=== PATIENT | female | born 1975 | race African-American/Black ===

== ENCOUNTER 2017-09-09 17:18 | Emergency (ER) | payer MEDICARE, MEDICAID ==
[~2017-09-09] VITALS: Ht 157.5 cm; Wt 80.0 kg
[~2017-09-09 17:18] MED LIST: HYDR25SU PR; LEVE750T10 PO; LEVO500T2 PO; TOPI50TA24 PO; [UNRECOGNIZED DRUG - OTHER] PR
[2017-09-09] MEDS ORDERED: ESLI200T PO (17:24)
[2017-09-09] MEDS ORDERED: LEVETIRACETAM 1,000 MG in SODIUM CHLORIDE 0.9% 100 ML IV ONE (18:00)
[2017-09-09 18:42] LABS: EOSINOPHILS % 1.7 % (0.0-5.0); HEMOGLOBIN. 12.9 g/dL (12.0-16.0); LYMPHOCYTES % 44.4 % (20.0-50.0); MEAN CORPUSCULAR HEMOGLOBIN 32.7 pg (28.0-32.0); MEAN CORPUSCULAR VOLUME 96.7 fL (81.0-99.0); MEAN PLATELET VOLUME 8.2 fl (7.4-10.4); NEUTROPHILS % 46.9 % (40.0-76.0); PLATELET 298 x1000/uL (130-400); RED BLOOD CELL COUNT 3.93 mill/uL (4.2-5.4); RED CELL DISTRIBUTION WIDTH 14.1 % (11.6-14.6)
[2017-09-09 18:59] LABS: CLARITY URINE CLEAR (CLEAR); COLOR URINE YELLOW (YELLOW); GLUCOSE URINE NEGATIVE (NEGATIVE); KETONES URINE NEGATIVE (NEGATIVE); LEUKOCYTE ESTERASE URINE NEGATIVE (NEGATIVE); NITRITE URINE NEGATIVE (NEGATIVE); OCCULT BLOOD URINE 3+ (NEGATIVE); PH URINE 7.5 (4.5-8.0); PROTEIN URINE NEGATIVE (NEGATIVE); SPECIFIC GRAVITY URINE 1.003 (1.005-1.030); UROBILINOGEN URINE 0.2 E.U./dL (0.2-1.0)
[2017-09-09] MEDS ORDERED: LEVETIRACETAM 1,000 MG in SODIUM CHLORIDE 0.9% 100 ML IV SCH (19:00)
[2017-09-09 19:25] LABS: *AMPHETAMINES SCREEN URINE NEGATIVE (NEGATIVE); *BARBITURATES SCREEN URINE NEGATIVE (NEGATIVE); *BENZODIAZEPINES SCREEN URINE NEGATIVE (NEGATIVE); *COCAINE SCREEN URINE NEGATIVE (NEGATIVE); METHADONE URINE SCREEN NEGATIVE (NEGATIVE); OPIATES URINE SCREEN NEGATIVE (NEGATIVE); PHENCYCLIDINE URINE SCREEN NEGATIVE (NEGATIVE)
[2017-09-09 19:29] LABS: CANNABINOID URINE SCREEN PRESUMTIVE POSITIVE (NEGATIVE)
[2017-09-09 19:41] LABS: CHLORIDE 104 mEq/L (98-107)
[2017-09-09 19:48] LABS: CARBON DIOXIDE 22 mEq/L (21-32); ETHANOL BLOOD < 10 mg/dL
[2017-09-09 19:52] LABS: CARBAMAZEPINE < 0.5 ug/mL (4-12); PHENOBARBITAL < 2.1 ug/mL (15.0-40.0); VALPROIC ACID < 3.0 ug/mL (50-100)
[2017-09-09 22:30] VITALS: BP 110/78
== END 2017-09-09 23:10 | disposition home or self-care (01) ==
LOC: ER 17:18
DX: R56.9 Unspecified convulsions (principal); F17.200 Nicotine dependence, unspecified, uncomplicated
CPT/HCPCS: 36415; 70450; 80053; 80156; 80165; 80184; 80185; 80305; 81001; 81025; 82962; 85025; 96365; 99285; G0482; J1953; J7050

== ENCOUNTER 2018-01-10 05:42 | Emergency (ER) | payer MEDICARE, MEDICAID ==
[~2018-01-10] VITALS: Ht 165.1 cm; Wt 63.0 kg
[~2018-01-10 05:42] MED LIST changes: +ESLI200T PO
[2018-01-10 06:58] LABS: BASOPHILS % 0.7 % (0.0-2.0); EOSINOPHILS % 0.2 % (0.0-5.0); HEMOGLOBIN. 13.7 g/dL (12.0-16.0); LYMPHOCYTES % 24.6 % (20.0-50.0); MEAN CORPUSCULAR HEMOGLOBIN 32.7 pg (28.0-32.0); MEAN CORPUSCULAR VOLUME 95.5 fL (81.0-99.0); MEAN PLATELET VOLUME 7.7 fl (7.4-10.4); MONOCYTES % 7.3 % (2.0-8.0); NEUTROPHILS % 67.2 % (40.0-76.0); PLATELET 317 x1000/uL (130-400); RED BLOOD CELL COUNT 4.19 mill/uL (4.2-5.4); RED CELL DISTRIBUTION WIDTH 14.2 % (11.6-14.6)
[2018-01-10 07:03] LABS: INR 1.1; PROTHROMBIN TIME 11.6 sec (9.4-11.6)
[2018-01-10 07:09] LABS: CHLORIDE 107 mEq/L (98-107)
[2018-01-10 07:26] LABS: HCG SCREEN NEGATIVE
[2018-01-10 07:35] LABS: CLARITY URINE CLOUDY (CLEAR); COLOR URINE YELLOW (YELLOW); KETONES URINE 4+ (NEGATIVE); LEUKOCYTE ESTERASE URINE TRACE (NEGATIVE); NITRITE URINE NEGATIVE (NEGATIVE); OCCULT BLOOD URINE TRACE (NEGATIVE); PH URINE 5.5 (4.5-8.0); PROTEIN URINE TRACE (NEGATIVE); SPECIFIC GRAVITY URINE 1.016 (1.005-1.030); UROBILINOGEN URINE 0.2 E.U./dL (0.2-1.0)
[2018-01-10 08:56] VITALS: BP 126/93
== END 2018-01-10 08:58 | disposition home or self-care (01) ==
LOC: ER 05:42
DX: G40.909 Epilepsy, unspecified, not intractable, without status epilepticus (principal); R10.2 Pelvic and perineal pain; J06.9 Acute upper respiratory infection, unspecified; I10 Essential (primary) hypertension; F17.200 Nicotine dependence, unspecified, uncomplicated
CPT/HCPCS: 36415; 71045; 80053; 81003; 83605; 84703; 85025; 85610; 99285

== ENCOUNTER 2018-01-10 09:36 | Emergency (ER) | payer MEDICARE, MEDICAID ==
[~2018-01-10] VITALS: Ht 167.6 cm; Wt 69.0 kg
[2018-01-10] MEDS ORDERED: MAGNESIUM/ALUMINUM HYDROXIDE/SIMETHICONE 30ML UDC PO STA (14:49)
[2018-01-10] MEDS ORDERED: VISCOUS LIDOCAINE 2% 15 ML UDC PO STA (14:49)
[2018-01-10 16:03] LABS: EOSINOPHILS % 0.3 % (0.0-5.0); LYMPHOCYTES % 40.5 % (20.0-50.0); MEAN CORPUSCULAR HEMOGLOBIN 32.7 pg (28.0-32.0); MEAN CORPUSCULAR VOLUME 96.2 fL (81.0-99.0); MONOCYTES % 7.7 % (2.0-8.0); NEUTROPHILS % 50.5 % (40.0-76.0); RED BLOOD CELL COUNT 4.58 mill/uL (4.2-5.4); RED CELL DISTRIBUTION WIDTH 14.3 % (11.6-14.6)
[2018-01-10 16:13] LABS: CHLORIDE 106 mEq/L (98-107)
[2018-01-10 16:18] LABS: ETHANOL BLOOD < 10 mg/dL
[2018-01-10 16:25] LABS: HCG SCREEN NEGATIVE
[2018-01-10] MEDS ORDERED: POTASSIUM CHLORIDE 20MEQ TABLET SR PO ONE (16:30)
[2018-01-10 18:50] LABS: CLARITY URINE CLEAR (CLEAR); COLOR URINE YELLOW (YELLOW); KETONES URINE 3+ (NEGATIVE); LEUKOCYTE ESTERASE URINE NEGATIVE (NEGATIVE); NITRITE URINE NEGATIVE (NEGATIVE); OCCULT BLOOD URINE TRACE (NEGATIVE); PH URINE 6.5 (4.5-8.0); PROTEIN URINE NEGATIVE (NEGATIVE); SPECIFIC GRAVITY URINE 1.012 (1.005-1.030)
[2018-01-10 19:11] LABS: *AMPHETAMINES SCREEN URINE NEGATIVE (NEGATIVE); *BARBITURATES SCREEN URINE NEGATIVE (NEGATIVE); *BENZODIAZEPINES SCREEN URINE NEGATIVE (NEGATIVE); *COCAINE SCREEN URINE NEGATIVE (NEGATIVE); METHADONE URINE SCREEN NEGATIVE (NEGATIVE); OPIATES URINE SCREEN NEGATIVE (NEGATIVE); PHENCYCLIDINE URINE SCREEN NEGATIVE (NEGATIVE)
[2018-01-10 19:12] LABS: CANNABINOID URINE SCREEN PRESUMTIVE POSITIVE (NEGATIVE)
[2018-01-10 20:07] VITALS: BP 120/62
== END 2018-01-10 20:13 | disposition home or self-care (01) ==
LOC: ER 11:19
DX: R10.13 Epigastric pain (principal); G40.909 Epilepsy, unspecified, not intractable, without status epilepticus; F91.8 Other conduct disorders; F12.10 Cannabis abuse, uncomplicated; E87.6 Hypokalemia; Z87.891 Personal history of nicotine dependence; Z88.8 Allergy status to other drugs, medicaments and biological substances
CPT/HCPCS: 36415; 76705; 80053; 80305; 81003; 82962; 83690; 84703; 85025; 99285; G0482

== ENCOUNTER 2018-01-11 08:37 | Emergency (ER) | payer MEDICARE, MEDICAID ==
[~2018-01-11] VITALS: Ht 177.8 cm; Wt 74.0 kg
[2018-01-11] MEDS ORDERED: MORPHINE SULFATE 4 MG/ML CPJ (NOT FOR IM USE) IV STA (09:13)
[2018-01-11] MEDS ORDERED: ONDANSETRON HCL 4MG/2ML VIAL IV STA (09:13)
[2018-01-11 09:38] LABS: BASOPHILS % 0.8 % (0.0-2.0); EOSINOPHILS % 0.2 % (0.0-5.0); HEMATOCRIT. 39.9 % (36.0-48.0); HEMOGLOBIN. 13.8 g/dL (12.0-16.0); LYMPHOCYTES % 29.8 % (20.0-50.0); MEAN CORPUSCULAR HEMOGLOBIN 32.8 pg (28.0-32.0); MEAN CORPUSCULAR VOLUME 94.9 fL (81.0-99.0); MEAN PLATELET VOLUME 7.3 fl (7.4-10.4); MONOCYTES % 8.8 % (2.0-8.0); NEUTROPHILS % 60.4 % (40.0-76.0); PLATELET 331 x1000/uL (130-400); RED BLOOD CELL COUNT 4.21 mill/uL (4.2-5.4); RED CELL DISTRIBUTION WIDTH 14.4 % (11.6-14.6)
[2018-01-11 09:45] LABS: CHLORIDE 107 mEq/L (98-107)
[2018-01-11 09:58] LABS: INR 1.1
[2018-01-11 11:14] LABS: CLARITY URINE CLEAR (CLEAR); COLOR URINE YELLOW (YELLOW); KETONES URINE 2+ (NEGATIVE); LEUKOCYTE ESTERASE URINE NEGATIVE (NEGATIVE); NITRITE URINE NEGATIVE (NEGATIVE); OCCULT BLOOD URINE NEGATIVE (NEGATIVE); PH URINE 6.5 (4.5-8.0); PROTEIN URINE NEGATIVE (NEGATIVE); SPECIFIC GRAVITY URINE 1.012 (1.005-1.030); UROBILINOGEN URINE 0.2 E.U./dL (0.2-1.0)
[2018-01-11 12:30] VITALS: BP 112/66
[2018-01-12] MEDS ORDERED: LEVETIRACETAM 250MG TABLET PO SCH (03:00)
[2018-01-12] MEDS ORDERED: TOPIRAMATE 100MG TABLET PO SCH (03:00)
== END 2018-01-11 13:38 | disposition home or self-care (01) ==
LOC: ER 09:23
DX: R10.11 Right upper quadrant pain (principal); G40.909 Epilepsy, unspecified, not intractable, without status epilepticus; Z87.891 Personal history of nicotine dependence; F12.90 Cannabis use, unspecified, uncomplicated; Z79.899 Other long term (current) drug therapy
CPT/HCPCS: 36415; 76705; 80053; 81003; 83690; 85025; 85610; 96374; 96375; 99285; J2270; J2405

== ENCOUNTER 2018-01-11 20:31 | Emergency (ER) | payer MEDICARE, MEDICAID ==
[~2018-01-11] VITALS: Ht 157.5 cm; Wt 75.0 kg
[2018-01-12] MEDS ORDERED: LEVETIRACETAM 100MG/ML ORAL SYR PO ONE (02:15)
[2018-01-12 03:06] VITALS: BP 130/85
[2018-01-12] MEDS ORDERED: TOPIRAMATE 100MG TABLET PO SCH (09:00)
== END 2018-01-12 03:10 | disposition home or self-care (01) ==
LOC: ER 22:08
DX: G40.909 Epilepsy, unspecified, not intractable, without status epilepticus (principal); R03.0 Elevated blood-pressure reading, without diagnosis of hypertension; Z91.14 Patient's other noncompliance with medication regimen; F17.210 Nicotine dependence, cigarettes, uncomplicated; F12.90 Cannabis use, unspecified, uncomplicated; F91.8 Other conduct disorders
CPT/HCPCS: 36415; 76705; 80053; 81003; 82962; 83690; 85025; 85610; 96374; 96375; 99283; 99285; J2270; J2405

== ENCOUNTER 2018-01-17 18:55 | Emergency (ER) | payer MEDICARE, MEDICAID ==
[~2018-01-17] VITALS: Ht 170.2 cm; Wt 55.0 kg
[2018-01-17] MEDS ORDERED: SODIUM CHLORIDE 0.9% 1,000 ML IV ONE (19:19)
[2018-01-17] MEDS ORDERED: LEVETIRACETAM 500MG PREMIX 100 ML IV ONE (19:30)
[2018-01-17 20:00] LABS: BASOPHILS % 0.6 % (0.0-2.0); EOSINOPHILS % 0.1 % (0.0-5.0); HEMOGLOBIN. 12.9 g/dL (12.0-16.0); LYMPHOCYTES % 17.3 % (20.0-50.0); MEAN CORPUSCULAR HEMOGLOBIN 32.5 pg (28.0-32.0); MEAN CORPUSCULAR VOLUME 95.8 fL (81.0-99.0); MONOCYTES % 6.5 % (2.0-8.0); NEUTROPHILS % 75.5 % (40.0-76.0); PLATELET 275 x1000/uL (130-400); RED BLOOD CELL COUNT 3.96 mill/uL (4.2-5.4)
[2018-01-17 20:02] LABS: INR 1.1; PROTHROMBIN TIME 11.6 sec (9.4-11.6)
[2018-01-17 20:07] LABS: CHLORIDE 108 mEq/L (98-107); ETHANOL BLOOD < 10 mg/dL
[2018-01-17 20:09] LABS: AMMONIA < 10 uMol/L (<32)
[2018-01-17 20:10] LABS: HCG SCREEN NEGATIVE
[2018-01-17 20:13] LABS: CREATINE KINASE 72 IU/L (26-192)
[2018-01-17] MEDS ORDERED: ACETAMINOPHEN 325MG TABLET PO ONE (20:15)
[2018-01-17 22:00] VITALS: BP 116/76
== END 2018-01-17 23:10 | disposition home or self-care (01) ==
LOC: ER 21:27
DX: G40.409 Other generalized epilepsy and epileptic syndromes, not intractable, without status epilepticus (principal); F12.10 Cannabis abuse, uncomplicated; Z88.8 Allergy status to other drugs, medicaments and biological substances
CPT/HCPCS: 36415; 70450; 80053; 82140; 82550; 83690; 84443; 84484; 84703; 85025; 85610; 93005; 96365; 99285; G0482; J1953; J7030

== ENCOUNTER 2018-02-08 11:50 | Emergency (ER) | payer MEDICARE, MEDICAID ==
[~2018-02-08] VITALS: Ht 167.6 cm; Wt 85.0 kg
[2018-02-08] MEDS ORDERED: LEVETIRACETAM 1000MG/100ML 100 ML IV ONE (12:45)
[2018-02-08 13:08] LABS: BASOPHILS % 0.9 % (0.0-2.0); EOSINOPHILS % 1.6 % (0.0-5.0); HEMOGLOBIN. 12.4 g/dL (12.0-16.0); LYMPHOCYTES % 24.9 % (20.0-50.0); MEAN CORPUSCULAR HEMOGLOBIN 32.8 pg (28.0-32.0); MEAN CORPUSCULAR VOLUME 95.6 fL (81.0-99.0); MEAN PLATELET VOLUME 7.1 fl (7.4-10.4); MONOCYTES % 5.4 % (2.0-8.0); NEUTROPHILS % 67.2 % (40.0-76.0); PLATELET 378 x1000/uL (130-400); RED BLOOD CELL COUNT 3.77 mill/uL (4.2-5.4); RED CELL DISTRIBUTION WIDTH 14.8 % (11.6-14.6)
[2018-02-08 13:15] LABS: CHLORIDE 114 mEq/L (98-107)
[2018-02-08 13:19] LABS: ETHANOL BLOOD < 10 mg/dL
[2018-02-08 16:08] LABS: CLARITY URINE CLEAR (CLEAR); COLOR URINE YELLOW (YELLOW); KETONES URINE NEGATIVE (NEGATIVE); LEUKOCYTE ESTERASE URINE NEGATIVE (NEGATIVE); NITRITE URINE NEGATIVE (NEGATIVE); OCCULT BLOOD URINE 2+ (NEGATIVE); PROTEIN URINE NEGATIVE (NEGATIVE); SPECIFIC GRAVITY URINE 1.015 (1.005-1.030); UROBILINOGEN URINE 0.2 E.U./dL (0.2-1.0)
[2018-02-08 16:22] LABS: *COCAINE SCREEN URINE NEGATIVE (NEGATIVE); METHADONE URINE SCREEN NEGATIVE (NEGATIVE); OPIATES URINE SCREEN NEGATIVE (NEGATIVE)
[2018-02-08 16:23] LABS: *AMPHETAMINES SCREEN URINE NEGATIVE (NEGATIVE); *BARBITURATES SCREEN URINE NEGATIVE (NEGATIVE); *BENZODIAZEPINES SCREEN URINE NEGATIVE (NEGATIVE); CANNABINOID URINE SCREEN PRESUMTIVE POSITIVE (NEGATIVE); PHENCYCLIDINE URINE SCREEN NEGATIVE (NEGATIVE)
[2018-02-08] MEDS ORDERED: LEVETIRACETAM 500MG TABLET PO ONE (16:30)
[2018-02-08 16:59] VITALS: BP 130/43
== END 2018-02-08 17:04 | disposition home or self-care (01) ==
LOC: ER 12:05
DX: G40.909 Epilepsy, unspecified, not intractable, without status epilepticus (principal); I10 Essential (primary) hypertension; F12.10 Cannabis abuse, uncomplicated; Z88.8 Allergy status to other drugs, medicaments and biological substances
CPT/HCPCS: 36415; 80053; 80305; 81003; 85025; 96365; 96366; 99285; G0482; J1953

== ENCOUNTER 2018-09-14 18:32 | Emergency (ER) | payer MEDICARE, MEDICAID ==
[~2018-09-14] VITALS: Ht 165.1 cm; Wt 91.0 kg
[2018-09-14] MEDS ORDERED: SODIUM CHLORIDE 0.9% 1,000 ML IV ONE (19:33)
[2018-09-14 20:28] LABS: BASOPHILS % 0.5 % (0.0-2.0); EOSINOPHILS % 1.1 % (0.0-5.0); HEMATOCRIT. 38.3 % (36.0-48.0); HEMOGLOBIN. 12.5 g/dL (12.0-16.0); LYMPHOCYTES % 19.8 % (20.0-50.0); MEAN CORPUSCULAR HEMOGLOBIN 32.1 pg (28.0-32.0); MEAN CORPUSCULAR VOLUME 98.2 fL (81.0-99.0); MEAN PLATELET VOLUME 8.1 fl (7.4-10.4); MONOCYTES % 6.2 % (2.0-8.0); NEUTROPHILS % 72.4 % (40.0-76.0); PLATELET 286 x1000/uL (130-400); RED CELL DISTRIBUTION WIDTH 14.4 % (11.6-14.6)
[2018-09-14 20:31] LABS: CHLORIDE 110 mEq/L (98-107)
[2018-09-14 20:38] LABS: ETHANOL BLOOD < 10 mg/dL
[2018-09-14 20:53] LABS: CLARITY URINE TURBID (CLEAR); COLOR URINE YELLOW (YELLOW); KETONES URINE NEGATIVE (NEGATIVE); LEUKOCYTE ESTERASE URINE NEGATIVE (NEGATIVE); NITRITE URINE NEGATIVE (NEGATIVE); OCCULT BLOOD URINE NEGATIVE (NEGATIVE); PROTEIN URINE NEGATIVE (NEGATIVE); SPECIFIC GRAVITY URINE 1.009 (1.005-1.030); UROBILINOGEN URINE 0.2 E.U./dL (0.2-1.0)
[2018-09-14] MEDS ORDERED: DEXTROSE 50% WATER 50ML SYRINGE IV NR (21:00)
[2018-09-14 21:16] LABS: HCG SCREEN NEGATIVE
[2018-09-14 21:19] LABS: PROTHROMBIN TIME 10.2 sec (9.1-11.1)
[2018-09-14 21:28] LABS: *AMPHETAMINES SCREEN URINE NEGATIVE (NEGATIVE); *BARBITURATES SCREEN URINE NEGATIVE (NEGATIVE); *BENZODIAZEPINES SCREEN URINE NEGATIVE (NEGATIVE); *COCAINE SCREEN URINE NEGATIVE (NEGATIVE); METHADONE URINE SCREEN NEGATIVE (NEGATIVE); OPIATES URINE SCREEN NEGATIVE (NEGATIVE)
[2018-09-14 21:29] LABS: PHENCYCLIDINE URINE SCREEN NEGATIVE (NEGATIVE)
[2018-09-14 21:30] LABS: CANNABINOID URINE SCREEN PRESUMTIVE POSITIVE (NEGATIVE)
[2018-09-15 00:02] VITALS: BP 100/59
== END 2018-09-14 23:50 | disposition home or self-care (01) ==
LOC: ER 18:32
DX: R56.9 Unspecified convulsions (principal); E16.2 Hypoglycemia, unspecified; F12.10 Cannabis abuse, uncomplicated; I10 Essential (primary) hypertension; R53.1 Weakness; R42 Dizziness and giddiness; M79.605 Pain in left leg; Z86.718 Personal history of other venous thrombosis and embolism; Z86.711 Personal history of pulmonary embolism; Z98.890 Other specified postprocedural states; Z88.8 Allergy status to other drugs, medicaments and biological substances; Z88.2 Allergy status to sulfonamides; Z79.899 Other long term (current) drug therapy
CPT/HCPCS: 36415; 70450; 80053; 80305; 81003; 81025; 82962; 83605; 84484; 84703; 85025; 85610; 93005; 96360; 96361; 99284; G0482; J7030

== ENCOUNTER 2018-12-06 09:02 | Emergency (ER) | payer MEDICARE, MEDICAID ==
[~2018-12-06] VITALS: Ht 167.6 cm; Wt 91.0 kg
[2018-12-06] MEDS: OXYCODONE HCL/ACETAMINOPHEN 5/325MG TABLET PO ONE (10:12)
[2018-12-06] MEDS: NA PHOS,M-B/NA PHOS,DI-BA ENEMA 118ML PR ONE (10:26)
[2018-12-06] MEDS: MAGNESIUM CITRATE 300ML SOLUTION PO ONE (10:26)
[2018-12-06 15:20] VITALS: BP 135/75
== END 2018-12-06 18:05 | disposition home or self-care (01) ==
LOC: ER 09:17
DX: K59.00 Constipation, unspecified (principal); M54.5 Low back pain; F12.10 Cannabis abuse, uncomplicated; I10 Essential (primary) hypertension; Z86.718 Personal history of other venous thrombosis and embolism; Z88.2 Allergy status to sulfonamides; Z88.8 Allergy status to other drugs, medicaments and biological substances; Z79.899 Other long term (current) drug therapy
CPT/HCPCS: 99284

== ENCOUNTER 2019-01-21 20:44 | Emergency (ER) | payer MEDICARE, MEDICAID ==
[~2019-01-21] VITALS: Ht 167.6 cm; Wt 73.0 kg
[2019-01-21] MEDS ORDERED: LEVETIRACETAM 500MG PREMIX 100 ML IV ONE (22:30)
[2019-01-21] MEDS ORDERED: LEVETIRACETAM 500MG PREMIX 100 ML IV SCH (23:15)
[2019-01-21 23:19] LABS: *AMPHETAMINES SCREEN URINE NEGATIVE (NEGATIVE); *BARBITURATES SCREEN URINE NEGATIVE (NEGATIVE); *BENZODIAZEPINES SCREEN URINE NEGATIVE (NEGATIVE); *COCAINE SCREEN URINE NEGATIVE (NEGATIVE); METHADONE URINE SCREEN NEGATIVE (NEGATIVE); OPIATES URINE SCREEN NEGATIVE (NEGATIVE)
[2019-01-21 23:20] LABS: CANNABINOID URINE SCREEN PRESUMTIVE POSITIVE (NEGATIVE); PHENCYCLIDINE URINE SCREEN NEGATIVE (NEGATIVE)
[2019-01-21 23:59] LABS: BASOPHILS % 1.6 % (0.0-2.0); EOSINOPHILS % 1.9 % (0.0-5.0); HEMATOCRIT. 38.5 % (36.0-48.0); HEMOGLOBIN. 12.9 g/dL (12.0-16.0); LYMPHOCYTES % 49.2 % (20.0-50.0); MEAN CORPUSCULAR HEMOGLOBIN 32.4 pg (28.0-32.0); MEAN PLATELET VOLUME 7.3 fl (7.4-10.4); MONOCYTES % 5.4 % (2.0-8.0); NEUTROPHILS % 41.9 % (40.0-76.0); PLATELET 306 x1000/uL (130-400); RED BLOOD CELL COUNT 3.97 mill/uL (4.2-5.4); RED CELL DISTRIBUTION WIDTH 14.8 % (11.6-14.6)
[2019-01-22 00:06] LABS: CHLORIDE 112 mEq/L (98-107)
[2019-01-22 00:07] LABS: INR 1.1; PARTIAL THROMBOPLASTIN TIME 27.9 sec (23.4-31.0); PROTHROMBIN TIME 10.6 sec (9.1-11.1)
[2019-01-22 00:10] LABS: ETHANOL BLOOD < 10 mg/dL
[2019-01-22 00:17] LABS: HCG SCREEN NEGATIVE
[2019-01-22 00:21] LABS: CARBAMAZEPINE < 0.5 ug/mL (4-12)
[2019-01-22 01:15] VITALS: BP 112/70
== END 2019-01-22 04:07 | disposition home or self-care (01) ==
LOC: ER 20:44
DX: R56.9 Unspecified convulsions (principal); F12.10 Cannabis abuse, uncomplicated; I10 Essential (primary) hypertension; Z79.899 Other long term (current) drug therapy; Z88.8 Allergy status to other drugs, medicaments and biological substances
CPT/HCPCS: 36415; 70450; 80053; 80156; 80305; 80320; 84703; 85025; 85610; 85730; 96365; 99284; J1953; G0480

== ENCOUNTER 2019-02-26 18:24 | Emergency (ER) | payer MEDICARE, MEDICAID ==
[~2019-02-26] VITALS: Ht 172.7 cm; Wt 96.0 kg
[2019-02-26] MEDS ORDERED: LEVETIRACETAM 500MG PREMIX 100 ML IV ONE (19:45)
[2019-02-26 21:00] LABS: CHLORIDE 111 mEq/L (98-107)
[2019-02-26 21:01] LABS: BASOPHILS % 1.2 % (0.0-2.0); EOSINOPHILS % 1.8 % (0.0-5.0); HEMATOCRIT. 37.8 % (36.0-48.0); HEMOGLOBIN. 12.5 g/dL (12.0-16.0); MEAN CORPUSCULAR HEMOGLOBIN 32.5 pg (28.0-32.0); MEAN CORPUSCULAR VOLUME 98.5 fL (81.0-99.0); MEAN PLATELET VOLUME 7.9 fl (7.4-10.4); MONOCYTES % 6.6 % (2.0-8.0); NEUTROPHILS % 59.4 % (40.0-76.0); PLATELET 272 x1000/uL (130-400); RED BLOOD CELL COUNT 3.84 mill/uL (4.2-5.4)
[2019-02-26 21:04] LABS: ETHANOL BLOOD < 10 mg/dL
[2019-02-26 21:10] LABS: HCG SCREEN NEGATIVE
[2019-02-26 22:59] VITALS: BP 109/67
== END 2019-02-26 23:45 | disposition home or self-care (01) ==
LOC: ER 18:24
DX: R56.9 Unspecified convulsions (principal); I10 Essential (primary) hypertension; F17.200 Nicotine dependence, unspecified, uncomplicated; F12.10 Cannabis abuse, uncomplicated; Z79.899 Other long term (current) drug therapy; Z88.8 Allergy status to other drugs, medicaments and biological substances
CPT/HCPCS: 36415; 80053; 80320; 81025; 84703; 85025; 93005; 96365; 99284; J1953; G0480

== ENCOUNTER 2019-05-09 15:05 | Emergency (ER) | payer MEDICARE, MEDICAID ==
[~2019-05-09] VITALS: Ht 167.6 cm; Wt 82.0 kg
[2019-05-09] MEDS ORDERED: TOPIRAMATE 100MG TABLET PO STA (16:09)
[2019-05-09] MEDS ORDERED: SODIUM CHLORIDE 0.9% 1,000 ML IV ONE (16:09)
[2019-05-09] MEDS ORDERED: LEVETIRACETAM 500MG PREMIX 100 ML IV ONE (16:15)
[2019-05-09] MEDS ORDERED: ACETAMINOPHEN 325MG TABLET PO ONE (16:15)
[2019-05-09 16:34] LABS: BASOPHILS % 0.5 % (0.0-2.0); EOSINOPHILS % 0.5 % (0.0-5.0); HEMATOCRIT. 40.2 % (36.0-48.0); HEMOGLOBIN. 13.4 g/dL (12.0-16.0); MEAN CORPUSCULAR HEMOGLOBIN 32.9 pg (28.0-32.0); MEAN CORPUSCULAR VOLUME 98.7 fL (81.0-99.0); MONOCYTES % 7.5 % (2.0-8.0); NEUTROPHILS % 68.5 % (40.0-76.0); PLATELET 338 x1000/uL (130-400); RED BLOOD CELL COUNT 4.08 mill/uL (4.2-5.4); RED CELL DISTRIBUTION WIDTH 14.7 % (11.6-14.6)
[2019-05-09 16:38] LABS: CHLORIDE 107 mEq/L (98-107)
[2019-05-09 16:48] LABS: HCG SCREEN NEGATIVE
[2019-05-09] MEDS ORDERED: TOPIRAMATE 100MG TABLET PO NR (17:00)
[2019-05-09 18:44] VITALS: BP 114/69
== END 2019-05-09 19:01 | disposition home or self-care (01) ==
LOC: ER 15:05
DX: G40.909 Epilepsy, unspecified, not intractable, without status epilepticus (principal); S00.512A Abrasion of oral cavity, initial encounter; E16.2 Hypoglycemia, unspecified; I10 Essential (primary) hypertension; F12.90 Cannabis use, unspecified, uncomplicated; X58.XXXA Exposure to other specified factors, initial encounter; Y93.89 Activity, other specified; Y92.89 Other specified places as the place of occurrence of the external cause
CPT/HCPCS: 36415; 80053; 82962; 84703; 85025; 96365; 96366; 99283; J1953; J7030

== ENCOUNTER 2019-07-23 13:37 | Emergency (ER) | payer MEDICARE, MEDICAID ==
[~2019-07-23] VITALS: Ht 162.6 cm; Wt 80.0 kg
[~2019-07-23 13:37] MED LIST changes: +LEVE750T10 *; -LEVE750T10 PO
[2019-07-23] MEDS ORDERED: KEPP250 PO (13:55)
[2019-07-23] MEDS ORDERED: SODIUM CHLORIDE 0.9% 1,000 ML IV ONE (14:17)
[2019-07-23 16:00] LABS: BASOPHILS % 0.9 % (0.0-2.0); EOSINOPHILS % 1.1 % (0.0-5.0); HEMATOCRIT. 39.7 % (36.0-48.0); HEMOGLOBIN. 13.2 g/dL (12.0-16.0); LYMPHOCYTES % 27.1 % (20.0-50.0); MEAN CORPUSCULAR HEMOGLOBIN 32.5 pg (28.0-32.0); MEAN CORPUSCULAR VOLUME 98.1 fL (81.0-99.0); MEAN PLATELET VOLUME 7.9 fl (7.4-10.4); MONOCYTES % 6.3 % (2.0-8.0); NEUTROPHILS % 64.6 % (40.0-76.0); PLATELET 268 x1000/uL (130-400); RED BLOOD CELL COUNT 4.05 mill/uL (4.2-5.4); RED CELL DISTRIBUTION WIDTH 13.8 % (11.6-14.6)
[2019-07-23 16:04] LABS: CHLORIDE 112 mEq/L (98-107)
[2019-07-23 16:31] LABS: CLARITY URINE CLEAR (CLEAR); COLOR URINE ORANGE (YELLOW); KETONES URINE NEGATIVE (NEGATIVE); LEUKOCYTE ESTERASE URINE NEGATIVE (NEGATIVE); NITRITE URINE NEGATIVE (NEGATIVE); OCCULT BLOOD URINE 3+ (NEGATIVE); PH URINE 6.5 (4.5-8.0); PROTEIN URINE 1+ (NEGATIVE); SPECIFIC GRAVITY URINE 1.013 (1.005-1.030); UROBILINOGEN URINE 0.2 E.U./dL (0.2-1.0)
[2019-07-23 21:28] VITALS: BP 98/62
[2019-09-02] MEDS ORDERED: TOPI25CA5 PO (04:10)
[2019-09-02] MEDS ORDERED: LEVE750T4 MT (12:10)
== END 2019-07-23 21:27 | disposition home or self-care (01) ==
LOC: ER 16:43
DX: G40.909 Epilepsy, unspecified, not intractable, without status epilepticus (principal); S09.8XXA Other specified injuries of head, initial encounter; N39.0 Urinary tract infection, site not specified; I10 Essential (primary) hypertension; W18.39XA Other fall on same level, initial encounter; Y93.89 Activity, other specified; Y92.480 Sidewalk as the place of occurrence of the external cause
CPT/HCPCS: 36415; 70450; 71045; 80053; 81003; 82962; 83735; 84484; 85025; 93005; 99284; J7030

== ENCOUNTER 2019-08-16 14:19 | Emergency (ER) | payer MEDICARE, MEDICAID ==
[~2019-08-16] VITALS: Ht 170.2 cm; Wt 89.0 kg
[~2019-08-16 14:19] MED LIST changes: +KEPP250 PO
[2019-08-16 16:10] LABS: HEMATOCRIT. 42.3 % (36.0-48.0); HEMOGLOBIN. 14.2 g/dL (12.0-16.0); LYMPHOCYTES % 40.1 % (20.0-50.0); MEAN CORPUSCULAR HEMOGLOBIN 32.3 pg (28.0-32.0); MEAN CORPUSCULAR VOLUME 96.5 fL (81.0-99.0); MEAN PLATELET VOLUME 7.7 fl (7.4-10.4); MONOCYTES % 7.1 % (2.0-8.0); NEUTROPHILS % 50.8 % (40.0-76.0); PLATELET 248 x1000/uL (130-400); RED BLOOD CELL COUNT 4.38 mill/uL (4.2-5.4); RED CELL DISTRIBUTION WIDTH 13.5 % (11.6-14.6)
[2019-08-16 16:12] LABS: CHLORIDE 112 mEq/L (98-107)
[2019-08-16] MEDS ORDERED: LEVETIRACETAM 500MG PREMIX 100 ML IV ONE (16:15)
[2019-08-16 16:18] LABS: ETHANOL BLOOD < 10 mg/dL
[2019-08-16 17:22] LABS: CLARITY URINE CLEAR (CLEAR); COLOR URINE ORANGE (YELLOW); KETONES URINE NEGATIVE (NEGATIVE); LEUKOCYTE ESTERASE URINE TRACE (NEGATIVE); NITRITE URINE NEGATIVE (NEGATIVE); OCCULT BLOOD URINE 3+ (NEGATIVE); PROTEIN URINE TRACE (NEGATIVE); SPECIFIC GRAVITY URINE 1.004 (1.005-1.030); UROBILINOGEN URINE 0.2 E.U./dL (0.2-1.0)
[2019-08-16 17:43] LABS: *AMPHETAMINES SCREEN URINE NEGATIVE (NEGATIVE); *BARBITURATES SCREEN URINE NEGATIVE (NEGATIVE); *BENZODIAZEPINES SCREEN URINE NEGATIVE (NEGATIVE); *COCAINE SCREEN URINE NEGATIVE (NEGATIVE)
[2019-08-16 17:44] LABS: METHADONE URINE SCREEN NEGATIVE (NEGATIVE); OPIATES URINE SCREEN NEGATIVE (NEGATIVE); PHENCYCLIDINE URINE SCREEN NEGATIVE (NEGATIVE)
[2019-08-16 17:47] LABS: CANNABINOID URINE SCREEN PRESUMTIVE POSITIVE (NEGATIVE)
[2019-08-16] MEDS ORDERED: POTASSIUM CHLORIDE 20MEQ TABLET SR PO ONE (18:15)
[2019-08-16 18:50] VITALS: BP 97/54
[2019-09-02] MEDS ORDERED: TOPI25CA5 PO (04:10)
[2019-09-02] MEDS ORDERED: LEVE750T4 MT (12:10)
== END 2019-08-16 19:08 | disposition home or self-care (01) ==
LOC: ER 14:19
DX: R56.9 Unspecified convulsions (principal); I10 Essential (primary) hypertension; Z79.899 Other long term (current) drug therapy; Z88.2 Allergy status to sulfonamides; Z88.8 Allergy status to other drugs, medicaments and biological substances
CPT/HCPCS: 36415; 70450; 71045; 80053; 80305; 80320; 81003; 82962; 84484; 85025; 93005; 96365; 99284; J1953; G0480

== ENCOUNTER 2019-08-24 18:12 | Emergency (ER) | payer MEDICARE, MEDICAID ==
[~2019-08-24] VITALS: Ht 167.6 cm; Wt 77.2 kg
[~2019-08-24 18:12] MED LIST changes: -LEVE750T10 *; +LEVE750T10 PO
[2019-08-24] MEDS ORDERED: SODIUM CHLORIDE 0.9% 1,000 ML IV ONE (19:31)
[2019-08-24 19:42] LABS: CLARITY URINE CLOUDY (CLEAR); COLOR URINE YELLOW (YELLOW); KETONES URINE NEGATIVE (NEGATIVE); LEUKOCYTE ESTERASE URINE NEGATIVE (NEGATIVE); NITRITE URINE NEGATIVE (NEGATIVE); OCCULT BLOOD URINE NEGATIVE (NEGATIVE); PROTEIN URINE NEGATIVE (NEGATIVE); SPECIFIC GRAVITY URINE 1.012 (1.005-1.030); UROBILINOGEN URINE 0.2 E.U./dL (0.2-1.0)
[2019-08-24] MEDS ORDERED: LEVETIRACETAM 1000MG/100ML 100 ML IV ONE (19:45)
[2019-08-24 19:48] LABS: BASOPHILS % 0.7 % (0.0-2.0); HEMATOCRIT. 40.5 % (36.0-48.0); HEMOGLOBIN. 13.6 g/dL (12.0-16.0); MEAN CORPUSCULAR HEMOGLOBIN 32.5 pg (28.0-32.0); MEAN PLATELET VOLUME 7.4 fl (7.4-10.4); MONOCYTES % 5.3 % (2.0-8.0); PLATELET 345 x1000/uL (130-400); RED BLOOD CELL COUNT 4.18 mill/uL (4.2-5.4); RED CELL DISTRIBUTION WIDTH 14.5 % (11.6-14.6)
[2019-08-24 19:49] LABS: CHLORIDE 110 mEq/L (98-107)
[2019-08-24 19:52] LABS: ETHANOL BLOOD < 10 mg/dL
[2019-08-24 19:55] LABS: *BARBITURATES SCREEN URINE NEGATIVE (NEGATIVE)
[2019-08-24 19:56] LABS: *AMPHETAMINES SCREEN URINE NEGATIVE (NEGATIVE); *BENZODIAZEPINES SCREEN URINE NEGATIVE (NEGATIVE); *COCAINE SCREEN URINE NEGATIVE (NEGATIVE); METHADONE URINE SCREEN NEGATIVE (NEGATIVE); OPIATES URINE SCREEN NEGATIVE (NEGATIVE); PHENCYCLIDINE URINE SCREEN NEGATIVE (NEGATIVE)
[2019-08-24 20:07] LABS: CANNABINOID URINE SCREEN PRESUMTIVE POSITIVE (NEGATIVE)
[2019-08-24 23:00] VITALS: BP 115/69
== END 2019-08-24 23:45 | disposition home or self-care (01) ==
LOC: ER 18:12
DX: G40.909 Epilepsy, unspecified, not intractable, without status epilepticus (principal); E16.2 Hypoglycemia, unspecified
CPT/HCPCS: 36415; 80053; 80305; 80320; 81003; 81025; 82962; 85025; 96374; 99283; J1953; J7030; G0480

== ENCOUNTER 2019-10-06 00:01 | Emergency (ER) | payer MEDICARE, MEDICAID ==
[~2019-10-06] VITALS: Ht 157.5 cm; Wt 82.0 kg
[~2019-10-06 00:01] MED LIST changes: -ESLI200T PO; -HYDR25SU PR; -KEPP250 PO; +LEVE750T10 *; -LEVE750T10 PO; +LEVE750T4 MT; -LEVO500T2 PO; +TOPI25CA5 PO; -TOPI50TA24 PO; -[UNRECOGNIZED DRUG - OTHER] PR
[2019-10-06] MEDS ORDERED: ONDANSETRON HCL 4MG/2ML INJ IV STA (03:27)
[2019-10-06] MEDS ORDERED: FAMOTIDINE 20MG/2ML VIAL IV STA (03:27)
[2019-10-06] MEDS ORDERED: KETOROLAC 30MG/ML VIAL IV STA (03:27)
[2019-10-06 04:07] LABS: BASOPHILS % 0.9 % (0.0-2.0); EOSINOPHILS % 1.8 % (0.0-5.0); HEMATOCRIT. 39.7 % (36.0-48.0); HEMOGLOBIN. 13.3 g/dL (12.0-16.0); LYMPHOCYTES % 30.8 % (20.0-50.0); MEAN CORPUSCULAR HEMOGLOBIN 31.9 pg (28.0-32.0); MEAN CORPUSCULAR VOLUME 95.2 fL (81.0-99.0); MONOCYTES % 4.3 % (2.0-8.0); NEUTROPHILS % 62.2 % (40.0-76.0); PLATELET 331 x1000/uL (130-400); RED BLOOD CELL COUNT 4.17 mill/uL (4.2-5.4); RED CELL DISTRIBUTION WIDTH 13.8 % (11.6-14.6)
[2019-10-06 04:14] LABS: CHLORIDE 111 mEq/L (98-107)
[2019-10-06 04:15] LABS: PROTHROMBIN TIME 10.3 sec (9.6-11.0)
[2019-10-06 04:18] LABS: CLARITY URINE CLOUDY (CLEAR); COLOR URINE YELLOW (YELLOW); KETONES URINE TRACE (NEGATIVE); LEUKOCYTE ESTERASE URINE TRACE (NEGATIVE); NITRITE URINE NEGATIVE (NEGATIVE); OCCULT BLOOD URINE 3+ (NEGATIVE); PROTEIN URINE 1+ (NEGATIVE); SPECIFIC GRAVITY URINE 1.028 (1.005-1.030)
[2019-10-06 04:18] LABS: ETHANOL BLOOD < 10 mg/dL
[2019-10-06 06:00] VITALS: BP 148/87
== END 2019-10-06 07:29 | disposition home or self-care (01) ==
LOC: ER 00:01
DX: K29.00 Acute gastritis without bleeding (principal)
CPT/HCPCS: 36415; 80053; 80320; 81003; 81025; 83690; 85025; 85610; 96374; 96375; 99283; J1885; J2405; J3490; G0480

== ENCOUNTER 2019-10-06 07:23 | Emergency (ER) | payer MEDICARE, MEDICAID ==
[~2019-10-06] VITALS: Ht 157.5 cm; Wt 81.0 kg
[2019-10-06 10:17] LABS: BASOPHILS % 1.1 % (0.0-2.0); EOSINOPHILS % 1.8 % (0.0-5.0); HEMATOCRIT. 40.7 % (36.0-48.0); HEMOGLOBIN. 13.8 g/dL (12.0-16.0); LYMPHOCYTES % 34.6 % (20.0-50.0); MEAN CORPUSCULAR HEMOGLOBIN 32.4 pg (28.0-32.0); MEAN CORPUSCULAR VOLUME 95.6 fL (81.0-99.0); MEAN PLATELET VOLUME 7.1 fl (7.4-10.4); NEUTROPHILS % 56.5 % (40.0-76.0); PLATELET 339 x1000/uL (130-400); RED BLOOD CELL COUNT 4.26 mill/uL (4.2-5.4); RED CELL DISTRIBUTION WIDTH 14.1 % (11.6-14.6)
[2019-10-06 10:23] LABS: CHLORIDE 110 mEq/L (98-107)
[2019-10-06 10:24] LABS: PROTHROMBIN TIME 10.6 sec (9.6-11.0)
[2019-10-06 10:35] LABS: HCG SCREEN NEGATIVE
[2019-10-06 10:40] LABS: CLARITY URINE CLOUDY (CLEAR); COLOR URINE DARK YELLOW (YELLOW); KETONES URINE TRACE (NEGATIVE); LEUKOCYTE ESTERASE URINE TRACE (NEGATIVE); NITRITE URINE NEGATIVE (NEGATIVE); OCCULT BLOOD URINE 3+ (NEGATIVE); PROTEIN URINE TRACE (NEGATIVE); SPECIFIC GRAVITY URINE 1.029 (1.005-1.030)
[2019-10-06 12:55] VITALS: BP 118/80
[2019-10-06] MEDS ORDERED: LORAZEPAM 2MG/ML CPJ ONE (16:20)
== END 2019-10-06 15:13 | disposition home or self-care (01) ==
LOC: ER 07:23
DX: R10.84 Generalized abdominal pain (principal); G40.909 Epilepsy, unspecified, not intractable, without status epilepticus; Z59.0 Homelessness
CPT/HCPCS: 36415; 70450; 74176; 80053; 81003; 83690; 84703; 85025; 85610; 93005; 99284; J2060

== ENCOUNTER 2019-10-06 15:28 | Emergency (ER) | payer MEDICARE, MEDICAID ==
[~2019-10-06] VITALS: Ht 157.5 cm; Wt 81.0 kg
[2019-10-06] MEDS ORDERED: SODIUM CHLORIDE 0.9% 1,000 ML IV ONE (18:17)
[2019-10-06] MEDS ORDERED: LEVETIRACETAM 1000MG/100ML 100 ML IV ONE (18:30)
[2019-10-06 19:21] LABS: BASOPHILS % 0.8 % (0.0-2.0); EOSINOPHILS % 0.1 % (0.0-5.0); HEMATOCRIT. 36.9 % (36.0-48.0); HEMOGLOBIN. 12.3 g/dL (12.0-16.0); MEAN CORPUSCULAR HEMOGLOBIN 31.8 pg (28.0-32.0); MEAN CORPUSCULAR VOLUME 95.7 fL (81.0-99.0); MEAN PLATELET VOLUME 7.1 fl (7.4-10.4); MONOCYTES % 5.2 % (2.0-8.0); NEUTROPHILS % 83.9 % (40.0-76.0); PLATELET 323 x1000/uL (130-400); RED BLOOD CELL COUNT 3.86 mill/uL (4.2-5.4); RED CELL DISTRIBUTION WIDTH 14.2 % (11.6-14.6)
[2019-10-06 19:26] LABS: CHLORIDE 114 mEq/L (98-107)
[2019-10-06 19:30] LABS: ETHANOL BLOOD < 10 mg/dL
[2019-10-06 20:42] LABS: CLARITY URINE TURBID (CLEAR); COLOR URINE YELLOW (YELLOW); KETONES URINE TRACE (NEGATIVE); LEUKOCYTE ESTERASE URINE NEGATIVE (NEGATIVE); NITRITE URINE NEGATIVE (NEGATIVE); OCCULT BLOOD URINE 3+ (NEGATIVE); PH URINE 5.5 (4.5-8.0); PROTEIN URINE TRACE (NEGATIVE); SPECIFIC GRAVITY URINE 1.018 (1.005-1.030)
[2019-10-06 21:01] LABS: OPIATES URINE SCREEN NEGATIVE (NEGATIVE)
[2019-10-06 21:02] LABS: *AMPHETAMINES SCREEN URINE NEGATIVE (NEGATIVE); *BARBITURATES SCREEN URINE NEGATIVE (NEGATIVE); *BENZODIAZEPINES SCREEN URINE NEGATIVE (NEGATIVE); *COCAINE SCREEN URINE NEGATIVE (NEGATIVE); METHADONE URINE SCREEN NEGATIVE (NEGATIVE); PHENCYCLIDINE URINE SCREEN NEGATIVE (NEGATIVE)
[2019-10-06 21:04] VITALS: BP 123/65
[2019-10-06 21:04] LABS: CANNABINOID URINE SCREEN PRESUMTIVE POSITIVE (NEGATIVE)
== END 2019-10-06 21:24 | disposition home or self-care (01) ==
LOC: ER 15:28
DX: G40.909 Epilepsy, unspecified, not intractable, without status epilepticus (principal)
CPT/HCPCS: 36415; 80053; 80305; 80320; 81003; 85025; 96365; 99283; J1953; J7030; G0480

== ENCOUNTER 2019-10-08 07:19 | Emergency (ER) | payer MEDICARE, MEDICAID | END 2019-10-08 08:20 | disposition left against medical advice (07) | LOC: ER 07:19 | DX: Z53.21 Procedure and treatment not carried out due to patient leaving prior to being seen by health care provider (principal) ==

== ENCOUNTER 2019-10-08 16:20 | Emergency (ER) | payer MEDICARE, MEDICAID ==
[~2019-10-08] VITALS: Ht 172.7 cm; Wt 83.0 kg
[2019-10-08] MEDS ORDERED: SODIUM CHLORIDE 0.9% 1,000 ML IV ONE ×2 (17:10→20:57)
[2019-10-08] MEDS ORDERED: LEVETIRACETAM 1000MG/100ML 100 ML IV ONE (17:15)
[2019-10-08 18:52] LABS: EOSINOPHILS % 0.4 % (0.0-5.0); HEMOGLOBIN. 12.1 g/dL (12.0-16.0); MEAN CORPUSCULAR HEMOGLOBIN 32.1 pg (28.0-32.0); MEAN CORPUSCULAR VOLUME 95.5 fL (81.0-99.0); MEAN PLATELET VOLUME 7.1 fl (7.4-10.4); MONOCYTES % 5.7 % (2.0-8.0); NEUTROPHILS % 69.9 % (40.0-76.0); PLATELET 330 x1000/uL (130-400); RED BLOOD CELL COUNT 3.77 mill/uL (4.2-5.4); RED CELL DISTRIBUTION WIDTH 14.2 % (11.6-14.6)
[2019-10-08 18:57] LABS: CHLORIDE 109 mEq/L (98-107)
[2019-10-08 19:01] LABS: ETHANOL BLOOD < 10 mg/dL
[2019-10-08 19:10] LABS: HCG SCREEN NEGATIVE
[2019-10-08 20:53] LABS: CLARITY URINE CLEAR (CLEAR); COLOR URINE YELLOW (YELLOW); KETONES URINE 2+ (NEGATIVE); LEUKOCYTE ESTERASE URINE TRACE (NEGATIVE); NITRITE URINE NEGATIVE (NEGATIVE); OCCULT BLOOD URINE NEGATIVE (NEGATIVE); PH URINE 5.5 (4.5-8.0); PROTEIN URINE TRACE (NEGATIVE); SPECIFIC GRAVITY URINE 1.014 (1.005-1.030)
[2019-10-08] MEDS ORDERED: LEVETIRACETAM 500MG PREMIX 100 ML IV ONE (21:00)
[2019-10-08 21:05] LABS: *AMPHETAMINES SCREEN URINE NEGATIVE (NEGATIVE); *BARBITURATES SCREEN URINE NEGATIVE (NEGATIVE); *BENZODIAZEPINES SCREEN URINE NEGATIVE (NEGATIVE); *COCAINE SCREEN URINE NEGATIVE (NEGATIVE); METHADONE URINE SCREEN NEGATIVE (NEGATIVE); OPIATES URINE SCREEN NEGATIVE (NEGATIVE)
[2019-10-08 21:06] LABS: PHENCYCLIDINE URINE SCREEN NEGATIVE (NEGATIVE)
[2019-10-08 21:11] LABS: CANNABINOID URINE SCREEN PRESUMTIVE POSITIVE (NEGATIVE)
[2019-10-08 23:38] VITALS: BP 111/74
[2019-10-11 09:07] LABS: TOPIRAMATE None Detected ug/mL (2.0-25.0)
== END 2019-10-08 23:48 | disposition home or self-care (01) ==
LOC: ER 16:20
DX: G40.909 Epilepsy, unspecified, not intractable, without status epilepticus (principal); Z91.14 Patient's other noncompliance with medication regimen; I10 Essential (primary) hypertension
CPT/HCPCS: 36415; 70450; 71045; 80053; 80201; 80305; 80320; 81003; 81025; 84703; 85025; 96365; 99284; J1953; J7030; G0480

== ENCOUNTER 2019-10-24 17:23 | Emergency (ER) | payer MEDICARE, MEDICAID ==
[~2019-10-24] VITALS: Ht 157.5 cm; Wt 88.0 kg
[2019-10-24] MEDS ORDERED: LEVETIRACETAM 500MG PREMIX 100 ML IV ONE (21:45)
[2019-10-24] MEDS ORDERED: SODIUM CHLORIDE 0.9% 500 ML IV ONE (21:45)
[2019-10-25 08:04] VITALS: BP 115/78
== END 2019-10-25 10:25 | disposition home or self-care (01) ==
LOC: ER 17:23
DX: R56.9 Unspecified convulsions (principal); I10 Essential (primary) hypertension; Z88.2 Allergy status to sulfonamides; Z88.8 Allergy status to other drugs, medicaments and biological substances
CPT/HCPCS: 82962; 96365; 99283; J1953; J7040

== ENCOUNTER 2019-11-28 12:34 | Inpatient (IN) | payer MEDICARE, MEDICAID ==
[~2019-11-28] VITALS: Ht 165.1 cm; Wt 65.8 kg
[2019-11-28] MEDS ORDERED: SODIUM CHLORIDE 0.9% 1,000 ML IV ONE (13:10)
[2019-11-28 14:15] LABS: CHLORIDE 115 mEq/L (98-107)
[2019-11-28 14:20] LABS: ETHANOL BLOOD < 10 mg/dL
[2019-11-28 14:23] LABS: HCG SCREEN NEGATIVE
[2019-11-28 14:24] LABS: *AMPHETAMINES SCREEN URINE NEGATIVE (NEGATIVE); *BARBITURATES SCREEN URINE NEGATIVE (NEGATIVE); *BENZODIAZEPINES SCREEN URINE NEGATIVE (NEGATIVE)
[2019-11-28 14:25] LABS: *COCAINE SCREEN URINE NEGATIVE (NEGATIVE); METHADONE URINE SCREEN NEGATIVE (NEGATIVE); OPIATES URINE SCREEN NEGATIVE (NEGATIVE); PHENCYCLIDINE URINE SCREEN NEGATIVE (NEGATIVE)
[2019-11-28 14:28] LABS: CANNABINOID URINE SCREEN PRESUMTIVE POSITIVE (NEGATIVE)
[2019-11-28 15:21] LABS: MEAN CORPUSCULAR HEMOGLOBIN 31.9 pg (28.0-32.0); MEAN CORPUSCULAR VOLUME 98.4 fL (81.0-99.0); MEAN PLATELET VOLUME 8.2 fl (7.4-10.4); PLATELET 108 x1000/uL (130-400); RED BLOOD CELL COUNT 1.69 mill/uL (4.2-5.4); RED CELL DISTRIBUTION WIDTH 14.1 % (11.6-14.6)
[2019-11-28 15:25] LABS: HEMOGLOBIN. 5.4 g/dL (12.0-16.0)
[2019-11-28 15:26] LABS: HEMATOCRIT. 16.6 % (36.0-48.0)
[2019-11-28 16:44] LABS: PLATELET ESTIMATE DECREASED
[2019-11-28] MEDS ORDERED: CALCIUM CHLORIDE 1,000 MG in DEXT 5% WATER 90 ML IV ONE (17:00)
[2019-11-28 17:09] LABS: TOTAL IRON BINDING CAPACITY 375 ug/dL (250-450)
[2019-11-28 17:33] LABS: BG BASE EXCESS -5.1 mmol/L (-2.0-2.0); BG CARBOXYHEMOGLOBIN 0.3 % (0.5-1.5); BG DEOXYHEMOGLOBIN 4.5 % (0.0-5.0); BG FRACTION INSPIRED OXYGEN 21; BG HCO3 ACT 19.1 mmol/L (22.0-26.0); BG METHEMOGLOBIN 0.1 % (0.0-1.5); BG OXYGEN SATURATION 95.5 % (92.0-98.5); BG OXYHEMOGLOBIN 95.1 % (94.0-97.0); BG PCO2 32.9 mmHg (35.0-45.0); BG PH 7.382 (7.350-7.450); BG PO2 81.3 mmHg (75.0-100.0); BG SAMPLE SITE RIGHT BRACHIAL; BG VENT MODE ROOM AIR
[2019-11-28 19:27] LABS: CHLORIDE 115 mEq/L (98-107)
[2019-11-28] MEDS ORDERED: ONDANSETRON HCL 4MG/2ML INJ IV PRN (21:45)
[2019-11-28] MEDS ORDERED: CLONIDINE 0.1MG TABLET PO PRN (21:45)
[2019-11-28] MEDS ORDERED: ACETAMINOPHEN 325MG TABLET PO PRN (21:45)
[2019-11-28] MEDS ORDERED: HYDROCODONE/ACETAMINOPHEN 5/325MG TABLET PO PRN (21:45)
[2019-11-28] MEDS ORDERED: IPRATROPIUM/ALBUTEROL 0.5-3(2.5)MG/3ML NEB HHN PRN (21:45)
[2019-11-28 23:00] VITALS: BP_SYST 110; BP_SYST 118; BP_DIAS 72; BP_DIAS 74
[2019-11-28] MEDS ORDERED: LEVETIRACETAM 500MG PREMIX 100 ML IV NR (23:00)
[2019-11-28 23:57] LABS: TOTAL IRON BINDING CAPACITY 260 ug/dL (250-450)
[2019-11-29] VITALS (9 sets, daily range): BP systolic 92–110; BP diastolic 52–76
[2019-11-29 02:27] LABS: FERRITIN 73 ng/mL (10-291)
[2019-11-29 02:38] LABS: HEPATITIS B SURFACE ANTIGEN NEGATIVE
[2019-11-29 03:08] LABS: HEPATITIS A AB IGM NEGATIVE (NEGATIVE)
[2019-11-29 10:22] LABS: BASOPHILS % 0.8 % (0.0-2.0); EOSINOPHILS % 1.3 % (0.0-5.0); LYMPHOCYTES % 24.2 % (20.0-50.0); MEAN CORPUSCULAR HEMOGLOBIN 32.5 pg (28.0-32.0); MEAN CORPUSCULAR VOLUME 96.1 fL (81.0-99.0); MEAN PLATELET VOLUME 8.6 fl (7.4-10.4); MONOCYTES % 5.4 % (2.0-8.0); NEUTROPHILS % 68.3 % (40.0-76.0); RED BLOOD CELL COUNT 4.39 mill/uL (4.2-5.4); RED CELL DISTRIBUTION WIDTH 14.3 % (11.6-14.6)
[2019-11-29 10:32] LABS: CHLORIDE 117 mEq/L (98-107)
[2019-11-29 10:39] LABS: LDL CHOLESTEROL 110 mg/dL (5-100)
[2019-11-29 10:41] LABS: HDL CHOLESTEROL 46 mg/dL (40-59)
[2019-11-29 10:44] LABS: HEMATOCRIT. 42.1 % (36.0-48.0); HEMOGLOBIN. 14.2 g/dL (12.0-16.0); PLATELET 267 x1000/uL (130-400)
[2019-11-29 10:45] LABS: T4 FREE 0.92 ng/dL (0.76-1.46)
[2019-11-29 12:33] LABS: BASOPHILS % 0.9 % (0.0-2.0); EOSINOPHILS % 1.5 % (0.0-5.0); HEMATOCRIT. 41.5 % (36.0-48.0); LYMPHOCYTES % 28.7 % (20.0-50.0); MEAN CORPUSCULAR HEMOGLOBIN 32.4 pg (28.0-32.0); MEAN CORPUSCULAR VOLUME 96.1 fL (81.0-99.0); MEAN PLATELET VOLUME 8.8 fl (7.4-10.4); MONOCYTES % 5.3 % (2.0-8.0); NEUTROPHILS % 63.6 % (40.0-76.0); PLATELET 218 x1000/uL (130-400); RED BLOOD CELL COUNT 4.32 mill/uL (4.2-5.4); RED CELL DISTRIBUTION WIDTH 14.4 % (11.6-14.6)
[2019-11-29 12:42] LABS: CHLORIDE 115 mEq/L (98-107)
== END 2019-11-29 18:46 | disposition home or self-care (01) | DRG 101 ==
LOC: ER 12:34 → 3WST 15:49 → EDBEDREQ 15:51 → EDBEDREQSVC 15:51 → ENRESERV 18:12
PROVIDERS: ADMIT Internal Medicine; ATTEND Internal Medicine
PROC: 30233N1 Transfusion of Nonautologous Red Blood Cells into Peripheral Vein, Percutaneous Approach (ICD-10-PCS; principal; 2019-11-28)
DX: G40.909 Epilepsy, unspecified, not intractable, without status epilepticus (principal); E87.2 Acidosis; G93.40 Encephalopathy, unspecified; D61.818 Other pancytopenia; D25.9 Leiomyoma of uterus, unspecified; R07.9 Chest pain, unspecified; D64.9 Anemia, unspecified; D72.819 Decreased white blood cell count, unspecified; I95.9 Hypotension, unspecified; N70.11 Chronic salpingitis; Z88.8 Allergy status to other drugs, medicaments and biological substances; Z86.718 Personal history of other venous thrombosis and embolism
CPT/HCPCS: 36415; 36600; 71045; 76830; 76856; 78582; 80048; 80053; 80061; 80305; 80320; 82375; 82728; 82805; 83540; 83550; 83880; 84439; 84443; 84484; 84703; 85025; 85044; 85379; 86705; 86709; 86803; 86850; 86900; 86920; 87340; 93005; 93970; 96365; 99291; A9558; J1953; J3490; J7030; J7040; J7060; P9016; G0480

== ENCOUNTER 2019-12-26 18:03 | Emergency (ER) | payer MEDICARE, MEDICAID ==
[~2019-12-26] VITALS: Ht 167.6 cm; Wt 75.0 kg
[2019-12-26] MEDS ORDERED: SODIUM CHLORIDE 0.9% 1,000 ML IV ONE (20:13)
[2019-12-26] MEDS ORDERED: LEVETIRACETAM 1000MG/100ML 100 ML IV ONE (20:15)
[2019-12-26 21:00] LABS: BASOPHILS % 0.6 % (0.0-2.0); EOSINOPHILS % 1.4 % (0.0-5.0); HEMATOCRIT. 41.3 % (36.0-48.0); HEMOGLOBIN. 13.7 g/dL (12.0-16.0); LYMPHOCYTES % 25.7 % (20.0-50.0); MEAN CORPUSCULAR HEMOGLOBIN 32.5 pg (28.0-32.0); MEAN CORPUSCULAR VOLUME 97.7 fL (81.0-99.0); MEAN PLATELET VOLUME 9.2 fl (7.4-10.4); MONOCYTES % 5.8 % (2.0-8.0); NEUTROPHILS % 66.5 % (40.0-76.0); RED BLOOD CELL COUNT 4.22 mill/uL (4.2-5.4); RED CELL DISTRIBUTION WIDTH 14.5 % (11.6-14.6)
[2019-12-26 21:09] LABS: CHLORIDE 108 mEq/L (98-107)
[2019-12-26 21:13] LABS: ETHANOL BLOOD < 10 mg/dL
[2019-12-26 22:06] LABS: PLATELET 204 x1000/uL (130-400)
[2019-12-26 22:23] LABS: CLARITY URINE CLOUDY (CLEAR); COLOR URINE YELLOW (YELLOW); KETONES URINE NEGATIVE (NEGATIVE); LEUKOCYTE ESTERASE URINE NEGATIVE (NEGATIVE); NITRITE URINE NEGATIVE (NEGATIVE); OCCULT BLOOD URINE 3+ (NEGATIVE); PROTEIN URINE NEGATIVE (NEGATIVE); SPECIFIC GRAVITY URINE 1.007 (1.005-1.030); UROBILINOGEN URINE 0.2 E.U./dL (0.2-1.0)
[2019-12-26 22:36] LABS: *AMPHETAMINES SCREEN URINE NEGATIVE (NEGATIVE); *BARBITURATES SCREEN URINE NEGATIVE (NEGATIVE); *BENZODIAZEPINES SCREEN URINE NEGATIVE (NEGATIVE); *COCAINE SCREEN URINE NEGATIVE (NEGATIVE); METHADONE URINE SCREEN NEGATIVE (NEGATIVE); OPIATES URINE SCREEN NEGATIVE (NEGATIVE)
[2019-12-26 22:37] LABS: PHENCYCLIDINE URINE SCREEN NEGATIVE (NEGATIVE)
[2019-12-26 22:45] LABS: CANNABINOID URINE SCREEN PRESUMTIVE POSITIVE (NEGATIVE)
[2019-12-27] MEDS ORDERED: LEVETIRACETAM 1000MG/100ML 100 ML IV SCH (01:30)
[2019-12-27 03:26] VITALS: BP 105/59
== END 2019-12-27 03:35 | disposition home or self-care (01) ==
LOC: ER 18:03
DX: R56.9 Unspecified convulsions (principal); I10 Essential (primary) hypertension; Z79.899 Other long term (current) drug therapy; Z88.8 Allergy status to other drugs, medicaments and biological substances; Z88.2 Allergy status to sulfonamides
CPT/HCPCS: 36415; 80053; 80305; 80320; 81003; 81025; 85025; 96365; 99283; J1953; J7030; G0480

== ENCOUNTER 2020-02-11 19:42 | Emergency (ER) | payer OTHER, MEDICAID ==
[~2020-02-11] VITALS: Ht 170.2 cm; Wt 80.0 kg
[2020-02-11] MEDS ORDERED: LEVETIRACETAM 500MG PREMIX 100 ML IV ONE ×2 (22:15→23:15)
[2020-02-11 23:01] LABS: BASOPHILS % 0.4 % (0.0-2.0); EOSINOPHILS % 0.3 % (0.0-5.0); HEMATOCRIT. 39.3 % (36.0-48.0); HEMOGLOBIN. 13.3 g/dL (12.0-16.0); LYMPHOCYTES % 18.4 % (20.0-50.0); MEAN CORPUSCULAR HEMOGLOBIN 32.9 pg (28.0-32.0); MEAN CORPUSCULAR VOLUME 96.9 fL (81.0-99.0); MEAN PLATELET VOLUME 7.3 fl (7.4-10.4); MONOCYTES % 4.8 % (2.0-8.0); NEUTROPHILS % 76.1 % (40.0-76.0); PLATELET 316 x1000/uL (130-400); RED BLOOD CELL COUNT 4.05 mill/uL (4.2-5.4); RED CELL DISTRIBUTION WIDTH 14.2 % (11.6-14.6)
[2020-02-11 23:07] LABS: CHLORIDE 108 mEq/L (98-107)
[2020-02-11 23:08] LABS: HCG SCREEN NEGATIVE
[2020-02-11 23:11] LABS: ETHANOL BLOOD < 10 mg/dL
[2020-02-11] MEDS ORDERED: SODIUM CHLORIDE 0.9% 1,000 ML IV NR (23:15)
[2020-02-12 10:20] VITALS: BP 119/78
== END 2020-02-12 10:21 | disposition home or self-care (01) ==
LOC: ER 20:32
DX: R56.9 Unspecified convulsions (principal); I10 Essential (primary) hypertension; Z79.899 Other long term (current) drug therapy; Z88.8 Allergy status to other drugs, medicaments and biological substances
CPT/HCPCS: 36415; 70450; 71045; 80053; 80320; 82140; 82962; 83690; 83880; 84484; 84703; 85025; 93005; 96365; 99285; J1953; G0480

== ENCOUNTER 2020-03-13 15:38 | Inpatient (IN) | payer OTHER, MEDICAID ==
[~2020-03-13] VITALS: Ht 172.7 cm; Wt 79.8 kg
[2020-03-13] MEDS ORDERED: SODIUM CHLORIDE 0.9% 1,000 ML IV ONE (16:00)
[2020-03-13] MEDS ORDERED: LEVETIRACETAM 1000MG/100ML 100 ML IV ONE (16:00)
[2020-03-13 17:08] LABS: BASOPHILS % 0.7 % (0.0-2.0); HEMATOCRIT. 39.8 % (36.0-48.0); HEMOGLOBIN. 13.5 g/dL (12.0-16.0); LYMPHOCYTES % 7.4 % (20.0-50.0); MEAN CORPUSCULAR HEMOGLOBIN 32.6 pg (28.0-32.0); MEAN CORPUSCULAR VOLUME 96.2 fL (81.0-99.0); MEAN PLATELET VOLUME 7.1 fl (7.4-10.4); MONOCYTES % 4.7 % (2.0-8.0); NEUTROPHILS % 87.2 % (40.0-76.0); PLATELET 377 x1000/uL (130-400); RED BLOOD CELL COUNT 4.14 mill/uL (4.2-5.4); RED CELL DISTRIBUTION WIDTH 14.4 % (11.6-14.6)
[2020-03-13 17:13] LABS: CHLORIDE 108 mEq/L (98-107)
[2020-03-13 17:14] LABS: HCG SCREEN NEGATIVE
[2020-03-13 17:16] LABS: ETHANOL BLOOD < 10 mg/dL
[2020-03-13 17:21] LABS: CREATINE KINASE 448 IU/L (26-192)
[2020-03-13] MEDS ORDERED: LORAZEPAM 2MG/ML CPJ ONE (17:43)
[2020-03-13] MEDS ORDERED: LORAZEPAM 2MG/ML CPJ IV ONE (17:45)
[2020-03-13 18:53] LABS: CLARITY URINE CLEAR (CLEAR); COLOR URINE YELLOW (YELLOW); KETONES URINE NEGATIVE (NEGATIVE); LEUKOCYTE ESTERASE URINE NEGATIVE (NEGATIVE); NITRITE URINE NEGATIVE (NEGATIVE); OCCULT BLOOD URINE NEGATIVE (NEGATIVE); PROTEIN URINE TRACE (NEGATIVE)
[2020-03-13 19:12] LABS: *AMPHETAMINES SCREEN URINE NEGATIVE (NEGATIVE); *BARBITURATES SCREEN URINE NEGATIVE (NEGATIVE)
[2020-03-13 19:14] LABS: *BENZODIAZEPINES SCREEN URINE NEGATIVE (NEGATIVE); *COCAINE SCREEN URINE NEGATIVE (NEGATIVE); METHADONE URINE SCREEN NEGATIVE (NEGATIVE); OPIATES URINE SCREEN NEGATIVE (NEGATIVE); PHENCYCLIDINE URINE SCREEN NEGATIVE (NEGATIVE)
[2020-03-13 19:21] LABS: CANNABINOID URINE SCREEN PRESUMTIVE POSITIVE (NEGATIVE)
[2020-03-13] MEDS ORDERED: LORAZEPAM 2MG/ML CPJ IV PRN (22:00)
[2020-03-14 01:58] VITALS: BP 102/49
[2020-03-14] MEDS: DEXT 5%/0.45% NACL 1000ML 1,000 ML IV SCH ×2 (05:19→22:04)
[2020-03-14] MEDS: LEVETIRACETAM 500MG TABLET PO SCH ×2 (09:41→17:00)
[2020-03-14] MEDS: TOPIRAMATE 25MG TABLET PO SCH ×2 (09:42→17:00)
[2020-03-14 12:00] VITALS: BP 101/61
[2020-03-14] MEDS ORDERED: HYDROCODONE/ACETAMINOPHEN 5/325MG TABLET PO PRN (12:00)
[2020-03-14] MEDS ORDERED: ACETAMINOPHEN 650MG SUPP PR PRN (12:00)
[2020-03-14] MEDS ORDERED: ACETAMINOPHEN 325MG TABLET PO PRN (12:00)
[2020-03-14] MEDS ORDERED: ONDANSETRON HCL 4MG/2ML INJ IV PRN (12:00)
[2020-03-14] MEDS ORDERED: DIPHENHYDRAMINE 50MG/ML VIAL IV PRN (12:00)
[2020-03-14] MEDS ORDERED: LACTULOSE 20G/30ML UDC PO PRN (12:00)
[2020-03-14] MEDS: PIPERACILLIN/TAZOBACTAM 3.375 G in DEXT 5% WATER 100 ML IV SCH ×2 (14:00→22:04)
[2020-03-14] MEDS ORDERED: IPRATROPIUM/ALBUTEROL 0.5-3(2.5)MG/3ML NEB HHN PRN (16:30)
[2020-03-14] MEDS ORDERED: CLONIDINE 0.1MG TABLET PO PRN (16:30)
[2020-03-14 17:27] LABS: BASOPHILS % 1.4 % (0.0-2.0); EOSINOPHILS % 0.2 % (0.0-5.0); HEMOGLOBIN. 10.7 g/dL (12.0-16.0); LYMPHOCYTES % 31.9 % (20.0-50.0); MEAN CORPUSCULAR HEMOGLOBIN 32.5 pg (28.0-32.0); MEAN CORPUSCULAR VOLUME 96.8 fL (81.0-99.0); MEAN PLATELET VOLUME 7.1 fl (7.4-10.4); MONOCYTES % 6.2 % (2.0-8.0); NEUTROPHILS % 60.3 % (40.0-76.0); PLATELET 305 x1000/uL (130-400); RED CELL DISTRIBUTION WIDTH 14.2 % (11.6-14.6)
[2020-03-14 17:28] LABS: CHLORIDE 111 mEq/L (98-107)
[2020-03-14 17:30] LABS: INR 1.1; PROTHROMBIN TIME 11.5 sec (9.6-11.0)
[2020-03-14 17:37] LABS: CREATINE KINASE 609 IU/L (26-192)
[2020-03-14 17:39] LABS: CREATINE KINASE MB FRACTION 1.7 ng/mL (0.5-3.6)
[2020-03-14 20:48] VITALS: BP 113/46
[2020-03-14] MEDS: ENOXAPARIN 40MG/0.4ML SYR SUBCUT SCH (22:03)
[2020-03-14] MEDS: FAMOTIDINE 20MG TABLET PO SCH (22:04)
[2020-03-15 00:45] VITALS: BP 100/44
[2020-03-15] MEDS: PIPERACILLIN/TAZOBACTAM 3.375 G in DEXT 5% WATER 100 ML IV SCH ×4 (03:20→21:08)
[2020-03-15 04:00] VITALS: BP 105/61
[2020-03-15 06:46] LABS: BASOPHILS % 0.4 % (0.0-2.0); EOSINOPHILS % 0.7 % (0.0-5.0); HEMOGLOBIN. 10.9 g/dL (12.0-16.0); LYMPHOCYTES % 48.4 % (20.0-50.0); MEAN CORPUSCULAR HEMOGLOBIN 33.6 pg (28.0-32.0); MEAN CORPUSCULAR VOLUME 95.9 fL (81.0-99.0); MEAN PLATELET VOLUME 7.3 fl (7.4-10.4); MONOCYTES % 6.3 % (2.0-8.0); NEUTROPHILS % 44.2 % (40.0-76.0); PLATELET 296 x1000/uL (130-400); RED BLOOD CELL COUNT 3.24 mill/uL (4.2-5.4); RED CELL DISTRIBUTION WIDTH 14.3 % (11.6-14.6)
[2020-03-15 07:08] LABS: CHLORIDE 111 mEq/L (98-107)
[2020-03-15 08:00] VITALS: BP 108/63
[2020-03-15] MEDS: TOPIRAMATE 25MG TABLET PO SCH ×2 (08:31→17:11)
[2020-03-15] MEDS: LEVETIRACETAM 500MG TABLET PO SCH ×2 (08:32→17:11)
[2020-03-15] MEDS: DEXT 5%/0.45% NACL 1000ML 1,000 ML IV SCH ×2 (08:32→21:30)
[2020-03-15] MEDS ORDERED: LEVE750T4 MT (11:57)
[2020-03-15] MEDS ORDERED: TOPA25 MT (11:57)
[2020-03-15 12:00] VITALS: BP 96/54
[2020-03-15 15:58] VITALS: BP 93/55
[2020-03-15] MEDS: ENOXAPARIN 40MG/0.4ML SYR SUBCUT SCH (17:12)
[2020-03-15 17:23] LABS: CREATINE KINASE 755 IU/L (26-192)
[2020-03-15 17:24] LABS: CREATINE KINASE MB FRACTION < 1.0 ng/mL (0.5-3.6)
[2020-03-15 20:00] VITALS: BP 116/61
[2020-03-15] MEDS: FAMOTIDINE 20MG TABLET PO SCH (21:08)
[2020-03-16] VITALS: BP 94/54
[2020-03-16] MEDS: PIPERACILLIN/TAZOBACTAM 3.375 G in DEXT 5% WATER 100 ML IV SCH ×3 (01:54→14:18)
[2020-03-16] MEDS: LEVETIRACETAM 500MG TABLET PO SCH ×2 (08:35→17:22)
[2020-03-16] MEDS: TOPIRAMATE 25MG TABLET PO SCH ×2 (08:37→17:22)
[2020-03-16] MEDS: DEXT 5%/0.45% NACL 1000ML 1,000 ML IV SCH (10:50)
[2020-03-16 16:00] VITALS: BP 130/76
[2020-03-16 17:33] VITALS: BP 130/76
[2020-03-16] MEDS: ENOXAPARIN 40MG/0.4ML SYR SUBCUT SCH (18:00)
== END 2020-03-16 18:42 | disposition home or self-care (01) | DRG 100 ==
LOC: ER 15:38 → 6WST 17:54 → EDBEDREQ 17:59 → ENRESERV 22:47
PROVIDERS: ADMIT Internal Medicine; ATTEND Internal Medicine
DX: G40.409 Other generalized epilepsy and epileptic syndromes, not intractable, without status epilepticus (principal); J69.0 Pneumonitis due to inhalation of food and vomit; M62.82 Rhabdomyolysis; E87.1 Hypo-osmolality and hyponatremia; I10 Essential (primary) hypertension; E87.5 Hyperkalemia; F12.90 Cannabis use, unspecified, uncomplicated; Z95.828 Presence of other vascular implants and grafts; Z86.711 Personal history of pulmonary embolism; Z91.19 Patient's noncompliance with other medical treatment and regimen; Z79.899 Other long term (current) drug therapy; Z88.8 Allergy status to other drugs, medicaments and biological substances
CPT/HCPCS: 36415; 71045; 80048; 80053; 80305; 80320; 81003; 82542; 82550; 82553; 84703; 85025; 93005; 96365; 97162; 99291; J1650; J1953; J2060; J2543; J7030; J7060; G0480

== ENCOUNTER 2021-01-23 13:51 | Emergency (ER) | payer OTHER, MEDICAID ==
[~2021-01-23] VITALS: Ht 165.1 cm; Wt 59.1 kg
[~2021-01-23 13:51] MED LIST changes: +TOPA25 MT
[2021-01-23] MEDS ORDERED: SODIUM CHLORIDE 0.9% 1,000 ML IV ONE (14:45)
[2021-01-23] MEDS ORDERED: LEVETIRACETAM 1000MG PREMIX 100 ML IV ONE (14:45)
[2021-01-23 15:36] LABS: BASOPHILS % 0.9 % (0.0-2.0); EOSINOPHILS % 0.6 % (0.0-5.0); HEMATOCRIT. 41.1 % (36.0-48.0); HEMOGLOBIN. 14.1 g/dL (12.0-16.0); LYMPHOCYTES % 34.8 % (20.0-50.0); MEAN CORPUSCULAR HEMOGLOBIN 32.8 pg (28.0-32.0); MEAN CORPUSCULAR VOLUME 95.6 fL (81.0-99.0); MEAN PLATELET VOLUME 8.4 fl (7.4-10.4); MONOCYTES % 11.8 % (2.0-8.0); NEUTROPHILS % 51.9 % (40.0-76.0); PLATELET 249 x1000/uL (130-400)
[2021-01-23 15:41] LABS: CHLORIDE 106 mEq/L (98-107)
[2021-01-23 15:45] LABS: ETHANOL BLOOD < 10 mg/dL
[2021-01-23 15:47] LABS: HCG SCREEN NEGATIVE
[2021-01-23 19:18] VITALS: BP 125/71
== END 2021-01-23 19:19 | disposition home or self-care (01) ==
LOC: ER 14:10
DX: G40.909 Epilepsy, unspecified, not intractable, without status epilepticus (principal); I10 Essential (primary) hypertension; Z79.899 Other long term (current) drug therapy
CPT/HCPCS: 36415; 80053; 80320; 84703; 85025; 96365; 96366; 99284; J1953; J7030; G0480

== ENCOUNTER 2021-03-04 07:13 | Emergency (ER) | payer OTHER, MEDICAID ==
[~2021-03-04] VITALS: Ht 167.6 cm; Wt 63.0 kg
[2021-03-04] MEDS ORDERED: LEVETIRACETAM 500MG PREMIX 100 ML IV ONE (07:45)
[2021-03-04] MEDS ORDERED: SODIUM CHLORIDE 0.9% 1,000 ML IV ONE (07:45)
[2021-03-04 09:22] LABS: BASOPHILS % 0.5 % (0.0-2.0); EOSINOPHILS % 0.5 % (0.0-5.0); HEMATOCRIT. 36.1 % (36.0-48.0); HEMOGLOBIN. 12.1 g/dL (12.0-16.0); LYMPHOCYTES % 19.1 % (20.0-50.0); MEAN CORPUSCULAR HEMOGLOBIN 32.2 pg (28.0-32.0); MEAN CORPUSCULAR VOLUME 96.3 fL (81.0-99.0); MEAN PLATELET VOLUME 7.6 fl (7.4-10.4); MONOCYTES % 5.3 % (2.0-8.0); NEUTROPHILS % 74.6 % (40.0-76.0); PLATELET 319 x1000/uL (130-400); RED BLOOD CELL COUNT 3.75 mill/uL (4.2-5.4); RED CELL DISTRIBUTION WIDTH 14.5 % (11.6-14.6)
[2021-03-04 09:28] LABS: CHLORIDE 113 mEq/L (98-107)
[2021-03-04 09:31] LABS: ETHANOL BLOOD < 10 mg/dL
[2021-03-04 09:36] LABS: HCG SCREEN NEGATIVE
[2021-03-04 10:30] VITALS: BP 115/60
== END 2021-03-04 11:02 | disposition home or self-care (01) ==
LOC: ER 07:13
DX: G40.909 Epilepsy, unspecified, not intractable, without status epilepticus (principal); I10 Essential (primary) hypertension
CPT/HCPCS: 36415; 80053; 80320; 82962; 84703; 85025; 93005; 96365; 99284; J1953; J7030; G0480

== ENCOUNTER 2021-03-16 07:36 | Emergency (ER) | payer OTHER, MEDICAID ==
[~2021-03-16] VITALS: Ht 170.2 cm; Wt 68.0 kg
[2021-03-16] MEDS ORDERED: LEVETIRACETAM 1000MG PREMIX 100 ML IV ONE (08:00)
[2021-03-16 09:06] LABS: BASOPHILS % 0.7 % (0.0-2.0); EOSINOPHILS % 0.9 % (0.0-5.0); HEMATOCRIT. 39.8 % (36.0-48.0); HEMOGLOBIN. 13.7 g/dL (12.0-16.0); LYMPHOCYTES % 34.5 % (20.0-50.0); MEAN CORPUSCULAR HEMOGLOBIN 33.2 pg (28.0-32.0); MEAN CORPUSCULAR VOLUME 96.3 fL (81.0-99.0); MEAN PLATELET VOLUME 8.1 fl (7.4-10.4); MONOCYTES % 5.2 % (2.0-8.0); NEUTROPHILS % 58.7 % (40.0-76.0); PLATELET 348 x1000/uL (130-400); RED BLOOD CELL COUNT 4.13 mill/uL (4.2-5.4); RED CELL DISTRIBUTION WIDTH 14.4 % (11.6-14.6)
[2021-03-16 09:15] LABS: CHLORIDE 108 mEq/L (98-107)
[2021-03-16 09:20] LABS: ETHANOL BLOOD < 10 mg/dL
[2021-03-16 10:56] LABS: CLARITY URINE CLEAR (CLEAR); COLOR URINE YELLOW (YELLOW); KETONES URINE TRACE (NEGATIVE); LEUKOCYTE ESTERASE URINE TRACE (NEGATIVE); NITRITE URINE NEGATIVE (NEGATIVE); OCCULT BLOOD URINE NEGATIVE (NEGATIVE); PROTEIN URINE NEGATIVE (NEGATIVE); SPECIFIC GRAVITY URINE 1.007 (1.005-1.030)
[2021-03-16 11:15] LABS: *AMPHETAMINES SCREEN URINE NEGATIVE (NEGATIVE)
[2021-03-16 11:16] LABS: *BARBITURATES SCREEN URINE NEGATIVE (NEGATIVE); *BENZODIAZEPINES SCREEN URINE NEGATIVE (NEGATIVE); *COCAINE SCREEN URINE NEGATIVE (NEGATIVE); METHADONE URINE SCREEN NEGATIVE (NEGATIVE); OPIATES URINE SCREEN NEGATIVE (NEGATIVE)
[2021-03-16 11:17] LABS: PHENCYCLIDINE URINE SCREEN NEGATIVE (NEGATIVE)
[2021-03-16 11:34] LABS: CANNABINOID URINE SCREEN PRESUMTIVE POSITIVE (NEGATIVE)
[2021-03-16 12:58] VITALS: BP 119/76
== END 2021-03-16 12:59 | disposition home or self-care (01) ==
LOC: ER 07:36
DX: G40.909 Epilepsy, unspecified, not intractable, without status epilepticus (principal); I10 Essential (primary) hypertension; Z88.8 Allergy status to other drugs, medicaments and biological substances
CPT/HCPCS: 36415; 80053; 80305; 80320; 81003; 85025; 99285; G0480

== ENCOUNTER 2021-05-01 13:03 | Emergency (ER) | payer OTHER, MEDICAID ==
[~2021-05-01] VITALS: Ht 167.6 cm; Wt 79.0 kg
[2021-05-01] MEDS ORDERED: LEVETIRACETAM 500MG PREMIX 100 ML IV ONE (13:30)
[2021-05-01] MEDS ORDERED: LEVETIRACETAM 500MG TABLET PO ONE (14:15)
[2021-05-01 15:05] VITALS: BP 96/59
[2021-05-01] MEDS ORDERED: LEVE750T10 MT (16:33)
== END 2021-05-01 17:44 | disposition home or self-care (01) ==
LOC: ER 13:03
DX: G40.909 Epilepsy, unspecified, not intractable, without status epilepticus (principal); Z53.29 Procedure and treatment not carried out because of patient's decision for other reasons
CPT/HCPCS: 99284

== ENCOUNTER 2021-11-15 20:39 | Emergency (ER) | payer OTHER, MEDICAID ==
[~2021-11-15] VITALS: Ht 172.7 cm; Wt 91.0 kg
[~2021-11-15 20:39] MED LIST changes: +LEVE750T10 MT
[2021-11-15] MEDS ORDERED: HYDROCODONE/ACETAMINOPHEN 10/325MG TABLET PO ONE (21:00)
[2021-11-15] MEDS ORDERED: CYCL10TA7 MT (23:38)
[2021-11-15] MEDS ORDERED: ACET650T37 MT (23:38)
[2021-11-15] MEDS ORDERED: KETOROLAC 60MG/2ML VIAL IM ONE (23:45)
[2021-11-16 01:10] VITALS: BP 118/82
== END 2021-11-16 01:15 | disposition home or self-care (01) ==
LOC: ER 20:39
DX: S40.011A Contusion of right shoulder, initial encounter (principal); S70.01XA Contusion of right hip, initial encounter; S80.02XA Contusion of left knee, initial encounter; R03.0 Elevated blood-pressure reading, without diagnosis of hypertension; V09.00XA Pedestrian injured in nontraffic accident involving unspecified motor vehicles, initial encounter; Y93.89 Activity, other specified; Y92.59 Other trade areas as the place of occurrence of the external cause
CPT/HCPCS: 73030; 73502; 73562; 99284

== ENCOUNTER 2022-01-26 13:03 | Emergency (ER) | payer OTHER, MEDICAID ==
[~2022-01-26] VITALS: Ht 167.6 cm; Wt 81.0 kg
[~2022-01-26 13:03] MED LIST changes: +ACET650T37 MT; +CYCL10TA7 MT
[2022-01-26] MEDS ORDERED: LEVETIRACETAM 1000MG PREMIX 100 ML IV ONE (13:15)
[2022-01-26 15:17] LABS: CHLORIDE 106 mEq/L (98-107)
[2022-01-26 15:20] LABS: BASOPHILS % 0.6 % (0.0-2.0); EOSINOPHILS % 1.2 % (0.0-5.0); HEMATOCRIT. 38.7 % (36.0-48.0); HEMOGLOBIN. 13.1 g/dL (12.0-16.0); LYMPHOCYTES % 23.4 % (20.0-50.0); MEAN CORPUSCULAR HEMOGLOBIN 32.7 pg (28.0-32.0); MEAN CORPUSCULAR VOLUME 96.6 fL (81.0-99.0); MEAN PLATELET VOLUME 8.2 fl (7.4-10.4); MONOCYTES % 7.6 % (2.0-8.0); NEUTROPHILS % 67.2 % (40.0-76.0); PLATELET 286 x1000/uL (130-400); RED BLOOD CELL COUNT 4.01 mill/uL (4.2-5.4); RED CELL DISTRIBUTION WIDTH 13.9 % (11.6-14.6)
[2022-01-26 15:21] LABS: ETHANOL BLOOD < 10 mg/dL
[2022-01-26 15:26] LABS: PHENOBARBITAL < 2.1 ug/mL (15.0-40.0); VALPROIC ACID < 3.0 ug/mL (50-100)
[2022-01-26 15:31] LABS: CARBAMAZEPINE < 0.5 ug/mL (4-12)
[2022-01-26 15:49] LABS: CLARITY URINE CLOUDY (CLEAR); COLOR URINE YELLOW (YELLOW); KETONES URINE NEGATIVE (NEGATIVE); LEUKOCYTE ESTERASE URINE NEGATIVE (NEGATIVE); NITRITE URINE NEGATIVE (NEGATIVE); OCCULT BLOOD URINE NEGATIVE (NEGATIVE); PH URINE 7.5 (4.5-8.0); PROTEIN URINE NEGATIVE (NEGATIVE); SPECIFIC GRAVITY URINE 1.015 (1.005-1.030); UROBILINOGEN URINE 0.2 E.U./dL (0.2-1.0)
[2022-01-26 16:10] LABS: *AMPHETAMINES SCREEN URINE NEGATIVE (NEGATIVE); *BARBITURATES SCREEN URINE NEGATIVE (NEGATIVE); *BENZODIAZEPINES SCREEN URINE NEGATIVE (NEGATIVE); *COCAINE SCREEN URINE NEGATIVE (NEGATIVE)
[2022-01-26 16:11] LABS: METHADONE URINE SCREEN NEGATIVE (NEGATIVE); OPIATES URINE SCREEN NEGATIVE (NEGATIVE); PHENCYCLIDINE URINE SCREEN NEGATIVE (NEGATIVE)
[2022-01-26 16:13] LABS: CANNABINOID URINE SCREEN PRESUMTIVE POSITIVE (NEGATIVE)
[2022-01-26] MEDS ORDERED: TETANUS, DIPHTHERIA, PERTUSSIS VAC/PF 0.5ML (>10YR OLD) IM ONE (16:45)
[2022-01-26] MEDS ORDERED: LIDOCAINE HCL 1% 20ML VIAL (Pyxis) INJ INFIL ONE (16:45)
[2022-01-26] MEDS ORDERED: LIDOCAINE HCL 1% 10 MG/ML 10ML VIAL IJ NR (16:45)
[2022-01-26 18:00] VITALS: BP 121/73
[2022-01-27] MEDS ORDERED: TOPUD PO (06:09)
== END 2022-01-26 19:05 | disposition home or self-care (01) ==
LOC: ER 13:08
DX: R56.9 Unspecified convulsions (principal); I10 Essential (primary) hypertension; F12.10 Cannabis abuse, uncomplicated; Z79.899 Other long term (current) drug therapy
CPT/HCPCS: 36415; 70450; 80053; 80156; 80165; 80184; 80185; 80305; 80320; 81003; 82962; 85025; 96365; 99285; J1953; J3490; G0480

== ENCOUNTER 2022-01-29 12:12 | Emergency (ER) | payer OTHER, MEDICAID ==
[~2022-01-29] VITALS: Ht 165.1 cm; Wt 60.0 kg
[~2022-01-29 12:12] MED LIST changes: +TOPUD PO
[2022-01-29] MEDS ORDERED: LEVETIRACETAM 500MG PREMIX 100 ML IV ONE (12:30)
[2022-01-29 13:08] LABS: BASOPHILS % 0.8 % (0.0-2.0); EOSINOPHILS % 0.8 % (0.0-5.0); HEMOGLOBIN. 13.5 g/dL (12.0-16.0); LYMPHOCYTES % 50.9 % (20.0-50.0); MEAN CORPUSCULAR HEMOGLOBIN 32.8 pg (28.0-32.0); MEAN PLATELET VOLUME 8.3 fl (7.4-10.4); MONOCYTES % 9.6 % (2.0-8.0); NEUTROPHILS % 37.9 % (40.0-76.0); PLATELET 267 x1000/uL (130-400); RED BLOOD CELL COUNT 4.12 mill/uL (4.2-5.4); RED CELL DISTRIBUTION WIDTH 14.3 % (11.6-14.6)
[2022-01-29 13:13] LABS: CHLORIDE 108 mEq/L (98-107)
[2022-01-29 18:00] VITALS: BP 128/72
== END 2022-01-29 18:08 | disposition home or self-care (01) ==
LOC: ER 12:12
DX: G40.909 Epilepsy, unspecified, not intractable, without status epilepticus (principal); I10 Essential (primary) hypertension; Z91.14 Patient's other noncompliance with medication regimen; Z59.01 Sheltered homelessness
CPT/HCPCS: 36415; 80053; 85025; 96365; 99284; J1953